=== PATIENT | female | born 1965 | race Caucasian/White ===

== ENCOUNTER → 2016-11-02 | Outpatient (CLI) | payer BC ==
[~2016-11-02] VITALS: Ht 160 cm; Wt 127.0 kg
[~2016-11-02] MED LIST: CALCIUM PO; CELEBREX200 MG PO; ESTER-C 1,0001 EACH PO; LISINOPRIL-HCT1 EAC3 PO; REQUIP0.5 MG PO; VITAMIN D32000 UNI1 PO; WOMEN'S DAILY1 EAC2 PO
== END | disposition home or self-care (01) ==
LOC: AMB 13:17
PROC: 0DBP8ZX Excision of Rectum, Via Natural or Artificial Opening Endoscopic, Diagnostic (ICD-10-PCS; principal; 2016-11-02)
DX: Z12.11 Encounter for screening for malignant neoplasm of colon (principal); K62.1 Rectal polyp; K57.30 Diverticulosis of large intestine without perforation or abscess without bleeding
CPT/HCPCS: 88305; J2250; J3010